=== PATIENT | female | born 1980 | race Two or more races ===

== ENCOUNTER 2018-07-27 11:53 | Day surgery (SDC) | payer BC, OTHER ==
[~2018-07-27] VITALS: Ht 167.6 cm; Wt 76.6 kg
[2018-07-27] MEDS ORDERED: MELO7.5T31 PO (12:28)
[2018-07-27] MEDS ORDERED: LACTATED RINGERS 1,000 ML IV SCH (12:28)
[2018-07-27 12:31] VITALS: BP 111/63
[2018-07-27 12:38] LABS: HCG UR SG 1.025 (1.003-1.030)
[2018-07-27] MEDS ORDERED: FENTANYL PF 250 MCG/5ML ONE (12:58)
[2018-07-27] MEDS ORDERED: MIDAZOLAM 1 MG/ML, 2ML ONE (12:58)
[2018-07-27] MEDS ORDERED: ONDANSETRON 2MG/ML, 2ML ONE (13:00)
[2018-07-27] MEDS ORDERED: DEXAMETHASONE 4 MG/ML, 1ML ONE ×2 (13:00)
[2018-07-27] MEDS ORDERED: SODIUM CHLORIDE 0.9% PF 10ML ONE (13:01)
[2018-07-27] MEDS ORDERED: CEFAZOLIN 1,000 MG ONE ×2 (13:01)
[2018-07-27] MEDS ORDERED: PROPOFOL 10 MG/ML, 20ML ONE (13:01)
[2018-07-27] MEDS ORDERED: PROMETHAZINE 25 MG/ML, 1ML IV PRN (13:30)
[2018-07-27] MEDS ORDERED: MEPERIDINE/PF 25MG/0.5ML IVPush PRN (13:30)
[2018-07-27] MEDS ORDERED: HYDROmorphone 1 MG/ML, 1ML IV PRN (13:30)
[2018-07-27] MEDS ORDERED: MORPHINE SULFATE 4 MG/ML, 1ML IVPush PRN (13:30)
[2018-07-27] MEDS ORDERED: LABETALOL 5MG/ML, 20ML IV PRN (13:30)
[2018-07-27] MEDS ORDERED: ACETAMINOPHEN 325 MG TABLET PO PRN (13:30)
[2018-07-27] MEDS ORDERED: SODIUM BICARBONATE 1 MEQ/ML, 50ML VIAL ONE (13:30)
[2018-07-27] MEDS ORDERED: ONDANSETRON ODT 8 MG PO PRN (13:30)
[2018-07-27] MEDS ORDERED: LIDOCAINE 1%-EPI 1:100K, 30ML ONE (13:30)
[2018-07-27] MEDS ORDERED: PROMETHAZINE 25 MG SUPP PR PRN (13:30)
[2018-07-27] MEDS ORDERED: PROMETHAZINE 25 MG/ML, 1ML IM PRN ×2 (13:30)
[2018-07-27] MEDS ORDERED: HEPARIN 1,000 UNITS/ML, 10ML ONE (13:30)
[2018-07-27] MEDS ORDERED: ONDANSETRON 2MG/ML, 2ML IV PRN (13:30)
[2018-07-27] MEDS ORDERED: hydrALAzine 20 MG/ML, 1ML IV PRN (13:30)
[2018-07-27] MEDS ORDERED: OXYcodone 5 MG/5 ML ORAL.SOL UDC PO PRN (13:30)
[2018-07-27] MEDS ORDERED: PROMETHAZINE 12.5 MG SUPP PR PRN (13:30)
[2018-07-27] MEDS ORDERED: FENTANYL PF 100 MCG/2ML IV PRN (13:30)
[2018-07-27] MEDS ORDERED: ACETAMINOPHEN 650 MG/20.3 ML UDC ONE (15:16)
[2018-07-27] MEDS ORDERED: FENTANYL PF 100 MCG/2ML ONE (15:16)
[2018-07-27] MEDS ORDERED: OXYcodone 5 MG/5 ML ORAL.SOL UDC ONE (15:16)
== END 2018-07-27 18:30 | disposition home or self-care (01) ==
LOC: OUT 11:53
PROVIDERS: ATTEND Surgery
DX: I83.811 Varicose veins of right lower extremity with pain (principal)
CPT/HCPCS: 37722; 37765; 81025; J0690; J1100; J2250; J2405; J2704; J3010; J7120; J1644; J3490